=== PATIENT | female | born 1945 | race Caucasian/White ===

== ENCOUNTER 2021-09-11 02:46 | Emergency (ER) | payer BC, MEDICARE ==
[~2021-09-11] VITALS: Ht 152.4 cm; Wt 56.7 kg
== END 2021-09-11 03:55 | disposition home or self-care (01) ==
LOC: ER 02:46
DX: S71.112A Laceration without foreign body, left thigh, initial encounter (principal); I10 Essential (primary) hypertension; Z23 Encounter for immunization; Z88.0 Allergy status to penicillin; Z88.8 Allergy status to other drugs, medicaments and biological substances; W18.30XA Fall on same level, unspecified, initial encounter
CPT/HCPCS: 12004; 90471; 90714; 99282-25

== ENCOUNTER → 2023-03-01 | Outpatient (CLI) | payer MEDICARE, BC | LOC: PLD 13:53 → LAB SHORT 13:53 | DX: L72.8 Other follicular cysts of the skin and subcutaneous tissue (principal) | CPT/HCPCS: 88304 ==

== ENCOUNTER → 2023-07-17 | Outpatient (CLI) | payer MEDICARE, BC | LOC: LAB SHORT 12:22 → PLD 12:22 | DX: D48.5 Neoplasm of uncertain behavior of skin (principal) | CPT/HCPCS: 88305 ==

== ENCOUNTER → 2023-07-23 | Outpatient (CLI) | payer MEDICARE, BC | LOC: LAB SHORT 08:29 → LAB 08:29 | DX: L90.5 Scar conditions and fibrosis of skin (principal) | CPT/HCPCS: 88304 ==

== ENCOUNTER → 2023-07-30 | Outpatient (CLI) | payer MEDICARE, BC | LOC: LAB SHORT 09:39 → LAB 09:39 | DX: L82.1 Other seborrheic keratosis (principal) | CPT/HCPCS: 88305 ==

== ENCOUNTER → 2024-01-22 | Outpatient (CLI) | payer MEDICARE, BC | END | disposition home or self-care (01) | LOC: LAB SHORT 12:40 → LAB 12:40 | DX: N30.00 Acute cystitis without hematuria (principal) | CPT/HCPCS: 87086 ==

== ENCOUNTER 2024-10-17 16:40 | Emergency (ER) | payer MEDICARE, BC ==
[~2024-10-17] VITALS: Ht 152.4 cm; Wt 55.8 kg
[2024-10-17 17:08] VITALS: BP 110/98
[2024-10-17 17:53] LABS: BASOPHILS ABSOLUTE AUTO 0.05 K/mm3 (0.00-0.23); BASOPHILS PERCENT AUTO 1 % (0-2); EOSINOPHILS ABSOLUTE AUTO 0.27 K/mm3 (0.00-0.68); EOSINOPHILS PERCENT AUTO 5 % (0-6); Hemoglobin 12.7 g/dL (11.5-16.0); IMMATURE GRAN ABSOLUTE AUTO 0.02 K/mm3 (0.00-0.10); IMMATURE GRAN PERCENT AUTO 0 % (0-1); LYMPHOCYTES ABSOLUTE AUTO 1.13 K/mm3 (0.84-5.20); LYMPHOCYTES PERCENT AUTO 20 % (21-46); MONOCYTES ABSOLUTE AUTO 0.41 K/mm3 (0.16-1.47); MONOCYTES PERCENT AUTO 7 % (4-13); Mean Corpuscular HGB 26.7 pg (26.0-34.0); Mean Corpuscular HGB Conc 31.8 g/dL (31.5-36.5); Mean Corpuscular Volume 84 fL (80-100); Mean Platelet Volume 11.5 fL (9.1-12.4); NEUTROPHILS ABSOLUTE AUTO 3.83 K/mm3 (1.96-9.15); NEUTROPHILS PERCENT AUTO 67 % (41-73); Platelet Count 244 K/mm3 (150-400); RDW Coefficient Variation 14.6 % (11.7-14.2); RDW Standard Deviation 44.6 fL (35.1-46.3); Red Blood Cell Count 4.76 M/mm3 (3.80-5.20); White Blood Cell Count 5.71 K/mm3 (4.00-11.30)
[2024-10-17 18:32] LABS: Albumin, Blood 3.5 g/dL (3.4-5.0); Albumin/Globulin Ratio 0.9 (0.8-1.8); Bilirubin, Total 0.2 mg/dL (0.1-1.0); Bun/Creatinine Ratio 27.1 (12.0-20.0); Calcium, Blood 8.5 mg/dL (8.5-10.1); Creatinine, Blood 0.81 mg/dL (0.40-1.00); Globulin, Blood 3.8 g/dL (2.2-4.0); Potassium, Blood 3.4 mmol/L (3.5-5.5); Total Protein, Blood 7.3 g/dL (6.4-8.2)
[2024-10-17 18:50] LABS: Source, Urine Clean Catch
[2024-10-17 18:56] LABS: Appearance, Urine Hazy (Clear); Bilirubin, Urine Neg (Neg); Blood, Urine 1+ (Neg); Color, Urine Yellow (P-Yellow); Glucose Qualitative, Urine Neg (Neg); Ketones, Urine Neg (Neg); Leukocyte Esterase, Urine Neg (Neg); Nitrite, Urine Neg (Neg); Protein, Urine 2+ (Neg); Urobilinogen, Urine NORM (Normal)
[2024-10-17 19:11] LABS: Mucus Light (0-Heavy)
[2024-10-17 19:12] LABS: Bacteria Few /hpf; Red Blood Cells, Urine 0-2 /hpf (0-2); Squamous Epithelial Cells Mod /hpf (Few); White Blood Cells, Urine 0-2 /hpf (0-5)
[2024-10-17] MEDS ORDERED: Potassium Chloride 20 MEQ/15 ML UDC PO ONE (19:50)
== END 2024-10-17 20:12 | disposition other institution (70) ==
LOC: ER 16:40
PROVIDERS: Student in an Organized Health Care Education/Training Program
DX: R10.12 Left upper quadrant pain (principal); R10.30 Lower abdominal pain, unspecified; R11.2 Nausea with vomiting, unspecified; R19.7 Diarrhea, unspecified
CPT/HCPCS: 74177; 80053; 81001; 83690; 85025; 99284-25; A9270; Q9967

== ENCOUNTER 2024-11-09 16:21 | Emergency (ER) | payer MEDICARE, BC ==
[~2024-11-09] VITALS: Ht 152.4 cm; Wt 56.2 kg
[2024-11-09 16:29] VITALS: BP 210/75
[2024-11-09] MEDS ORDERED: Diphth,Pertuss(Acell),Tet Vac 0.5 ML VIAL IM ONE (16:35)
[2024-11-09] MEDS ORDERED: CEPH500 PO (16:39)
[2024-11-09] MEDS ORDERED: Cephalexin Monohydrate 500 MG Cap PO ONE (16:40)
== END 2024-11-09 17:28 | disposition home or self-care (01) ==
LOC: ER 16:21
DX: L03.115 Cellulitis of right lower limb (principal); I10 Essential (primary) hypertension; Z23 Encounter for immunization; Z88.0 Allergy status to penicillin; Z88.8 Allergy status to other drugs, medicaments and biological substances
CPT/HCPCS: 90471; 90715; 99282-25; A9270

== ENCOUNTER 2025-05-12 07:44 | Day surgery (SDC) | payer MEDICARE, BC ==
[~2025-05-12] VITALS: Ht 152.4 cm; Wt 59.4 kg
[~2025-05-12 07:44] MED LIST: Balanced Salt Epinephrine Irrigation Solution 500 mL IR SCH; CEPH500 PO; Moxifloxacin HCL 0.5 MG/0.1 ML 0.4MLSYR LEFTEYE SCH; NS 500 ML IV ONE; PHENYLEPHRINE\\TROPICAMIDE\\TETRACAINE OPHTHALMIC DILATING SOLN LEFTEYE PRN; Povidone-Iodine 450 DROP/30 ML Solution LEFTEYE SCH; Povidone-Iodine 450 DROP/30 ML Solution ONE; Tetracaine HCl/Pf 0.5% Opth Soln 4 ml ONE
[2025-05-12] MEDS ORDERED: CONEST.625 PO (08:40)
[2025-05-12] MEDS ORDERED: OMEP20ER PO (08:40)
[2025-05-12] MEDS ORDERED: MIRALAX17 GM PO (08:41)
[2025-05-12] MEDS ORDERED: ALPR1 PO (08:41)
[2025-05-12] MEDS ORDERED: Bentyl20 MG PO (08:41)
[2025-05-12] MEDS ORDERED: Azopt10 ML (08:41)
[2025-05-12] MEDS ORDERED: HYOS.125 (08:41)
[2025-05-12] MEDS ORDERED: ELET40TA PO (08:42)
[2025-05-12] MEDS ORDERED: PROM25 (08:43)
[2025-05-12] MEDS ORDERED: CIPR500 PO (08:43)
[2025-05-12] MEDS ORDERED: NS 500 ML IV ONE (08:48)
--- NOTE | 2025-05-12 08:49 | NUR ---
05/12/25 0849 Aysha Luong CALL LIGHT WITHIN REACH. FAMILY AT BEDSIDE. EYE DROPS IN AROUND 0840
[2025-05-12] MEDS ORDERED: Midazolam HCl 1MG / ML 2ML Vial ONE (09:55)
[2025-05-12 10:51] VITALS: BP 172/68
== END 2025-05-12 10:35 | disposition home or self-care (01) ==
LOC: ORSCSDS 07:44
PROVIDERS: Student in an Organized Health Care Education/Training Program
PROC: 08RK3JZ Replacement of Left Lens with Synthetic Substitute, Percutaneous Approach (ICD-10-PCS; principal; 2025-05-12 09:30)
DX: H25.813 Combined forms of age-related cataract, bilateral (principal); H40.1232 Low-tension glaucoma, bilateral, moderate stage; I10 Essential (primary) hypertension; K21.9 Gastro-esophageal reflux disease without esophagitis; Z79.899 Other long term (current) drug therapy
CPT/HCPCS: J2250; J7040; V2632